=== PATIENT | female | born 1955 | race Caucasian/White ===

== ENCOUNTER 2016-10-09 09:16 | Inpatient (IN) | payer MEDICARE, MEDICAID ==
[~2016-10-09] VITALS: Ht 162.6 cm; Wt 61.2 kg
[2016-10-09] MEDS ORDERED: SODIUM CHLORIDE 0.9% 1,000 ML IV ONE (09:51)
[2016-10-09] MEDS ORDERED: ONDANSETRON HCL 4MG/2ML VIAL IV STA (09:51)
[2016-10-09] MEDS ORDERED: FAMOTIDINE 20MG/2ML VIAL IV STA (09:51)
[2016-10-09 10:10] LABS: BASOPHILS % 0.6 % (0.0-2.0); EOSINOPHILS % 1.3 % (0.0-5.0); HEMATOCRIT. 26.2 % (36.0-48.0); HEMOGLOBIN. 8.9 g/dL (12.0-16.0); LYMPHOCYTES % 15.2 % (20.0-50.0); MEAN CORPUSCULAR HEMOGLOBIN 28.8 pg (28.0-32.0); MEAN CORPUSCULAR VOLUME 84.8 fL (81.0-99.0); MONOCYTES % 5.5 % (2.0-8.0); NEUTROPHILS % 77.4 % (40.0-76.0); PLATELET 218 x1000/uL (130-400); RED BLOOD CELL COUNT 3.09 mill/uL (4.2-5.4); RED CELL DISTRIBUTION WIDTH 14.5 % (11.6-14.6)
[2016-10-09 10:16] LABS: CHLORIDE 107 mEq/L (98-107); INDEX HEMOLYSI 1 (1-3); INDEX ICTERIC 1 (1-4); INDEX LIPEMIC 1 (1-3)
[2016-10-09 10:18] LABS: PROTHROMBIN TIME 10.2 sec
[2016-10-09 10:26] LABS: ALANINE AMINOTRANSFERASE 27 IU/L (13-61); ALBUMIN 3.6 g/dL (3.4-5.0); ANION GAP 13; CALCIUM 8.7 mg/dL (8.5-10.1); CARBON DIOXIDE 23 mEq/L (21-32); LIPASE 179 IU/L (73-393); UREA NITROGEN BLOOD 42 mg/dL (7-21); eGFR 19 mL/min (>60)
[2016-10-09 10:27] LABS: NT PRO B-TYPE NATRIURETIC PEP 1220 pg/mL (5-125); TROPONIN I < 0.02 ng/mL (0.00-0.04)
[2016-10-09 11:20] LABS: CLARITY URINE CLEAR (CLEAR); COLOR URINE YELLOW (YELLOW); GLUCOSE URINE NEGATIVE (NEGATIVE); KETONES URINE NEGATIVE (NEGATIVE); LEUKOCYTE ESTERASE URINE 1+ (NEGATIVE); NITRITE URINE NEGATIVE (NEGATIVE); OCCULT BLOOD URINE TRACE (NEGATIVE); PROTEIN URINE 1+ (NEGATIVE); SPECIFIC GRAVITY URINE 1.006 (1.005-1.030); UROBILINOGEN URINE 0.2 E.U./dL (0.2-1.0)
[2016-10-09 11:35] LABS: BACTERIA URINE TRACE; SQUAMOUS EPITHELIAL CELL URINE 1+ /lpf (RARE/1+)
[2016-10-09 11:47] LABS: RBC URINE 0-2 /hpf (0-2); WBC URINE 0-2 /hpf (0-2)
[2016-10-09] MEDS ORDERED: ACETAMINOPHEN 325MG TABLET PO PRN (13:00)
[2016-10-09] MEDS ORDERED: MAGNESIUM/ALUMINUM HYDROXIDE/SIMETHICONE 30ML UDC PO PRN (13:00)
[2016-10-09] MEDS ORDERED: IPRATROPIUM/ALBUTEROL 0.5-3(2.5)MG/3ML NEB INH PRN (13:00)
[2016-10-09] MEDS ORDERED: ONDANSETRON HCL 4MG/2ML VIAL IV PRN (13:00)
[2016-10-09] MEDS ORDERED: DIPHENHYDRAMINE 50MG/ML VIAL IV PRN (13:00)
[2016-10-09] MEDS ORDERED: GUAIFENESIN 200MG/10ML SUGAR FREE UDC PO PRN (13:00)
[2016-10-09] MEDS ORDERED: NA PHOS,M-B/NA PHOS,DI-BA ENEMA 118ML PR PRN (13:00)
[2016-10-09] MEDS ORDERED: LORAZEPAM 2MG/ML CPJ IV PRN (13:00)
[2016-10-09] MEDS ORDERED: HYDROCODONE/ACETAMINOPHEN 5/325MG TABLET PO PRN (13:00)
[2016-10-09] MEDS ORDERED: DOCUSATE SODIUM 100MG CAPSULE PO PRN (13:00)
[2016-10-09] MEDS ORDERED: CLONIDINE 0.1MG TABLET PO PRN (13:00)
[2016-10-09 14:18] LABS: ANION GAP 12; CALCIUM 8.5 mg/dL (8.5-10.1); CARBON DIOXIDE 23 mEq/L (21-32); CHLORIDE 113 mEq/L (98-107); INDEX HEMOLYSI 1 (1-3); INDEX ICTERIC 1 (1-4); INDEX LIPEMIC 1 (1-3); TROPONIN I < 0.02 ng/mL (0.00-0.04); UREA NITROGEN BLOOD 38 mg/dL (7-21); eGFR 21 mL/min (>60)
[2016-10-09 14:22] LABS: CREATINE KINASE 160 IU/L (26-192); INDEX HEMOLYSI 1 (1-3)
[2016-10-09 16:53] VITALS: BP 132/92
[2016-10-09] MEDS ORDERED: HYDROMORPHONE HCL/PF 2MG/ML CPJ IV PRN (17:30)
[2016-10-09] MEDS: SODIUM CHLORIDE 0.45% 1,000 ML IV SCH (18:26)
[2016-10-09] MEDS: ENOXAPARIN 30MG/0.3ML SYR SUBCUT SCH (18:28)
[2016-10-09] MEDS ORDERED: DEXTROSE 50% WATER 50ML SYRINGE IV PRN (19:00)
[2016-10-09 20:00] VITALS: BP 130/79
[2016-10-09] MEDS: BLOOD SUGAR DIAGNOSTIC STRIP TEST SCH (21:02)
[2016-10-09] MEDS: INSULIN LISPRO 100 UNITS/ML SUBCUT SCH (21:07)
[2016-10-10] VITALS: BP 112/75
[2016-10-10 03:52] VITALS: BP 128/71
[2016-10-10] MEDS: BLOOD SUGAR DIAGNOSTIC STRIP TEST SCH ×4 (06:22→20:55)
[2016-10-10] MEDS: INSULIN LISPRO 100 UNITS/ML SUBCUT SCH ×4 (06:27→20:55)
[2016-10-10 06:51] LABS: BASOPHILS % 0.9 % (0.0-2.0); EOSINOPHILS % 1.3 % (0.0-5.0); HEMATOCRIT. 24.4 % (36.0-48.0); HEMOGLOBIN. 8.2 g/dL (12.0-16.0); LYMPHOCYTES % 22.6 % (20.0-50.0); MEAN CORPUSCULAR HEMOGLOBIN 28.6 pg (28.0-32.0); MEAN CORPUSCULAR HGB CONC 33.4 g/dL (31.0-37.0); MEAN CORPUSCULAR VOLUME 85.5 fL (81.0-99.0); MEAN PLATELET VOLUME 7.9 fl (7.4-10.4); MONOCYTES % 8.6 % (2.0-8.0); NEUTROPHILS % 66.6 % (40.0-76.0); PLATELET 195 x1000/uL (130-400); RED BLOOD CELL COUNT 2.85 mill/uL (4.2-5.4); RED CELL DISTRIBUTION WIDTH 14.5 % (11.6-14.6); WHITE BLOOD COUNT 7.4 x1000/uL (4.5-11.0)
[2016-10-10 07:42] VITALS: BP 135/79
[2016-10-10 08:01] LABS: CHLORIDE 112 mEq/L (98-107); INDEX HEMOLYSI 1 (1-3); INDEX ICTERIC 1 (1-4); INDEX LIPEMIC 1 (1-3)
[2016-10-10 08:16] LABS: ALANINE AMINOTRANSFERASE 25 IU/L (13-61); ANION GAP 10; CALCIUM 8.6 mg/dL (8.5-10.1); CARBON DIOXIDE 26 mEq/L (21-32); HDL CHOLESTEROL 68 mg/dL (40-59); LDL CHOLESTEROL 65 mg/dL (5-100); T4 FREE 0.95 ng/dL (0.76-1.46); TRIGLYCERIDE 129 mg/dL (0-150); UREA NITROGEN BLOOD 37 mg/dL (7-21); eGFR 19 mL/min (>60)
[2016-10-10] MEDS: SODIUM CHLORIDE 0.45% 1,000 ML IV SCH (08:17)
[2016-10-10] MEDS: ASPIRIN 81MG EC TABLET PO SCH (08:46)
[2016-10-10 11:55] VITALS: BP 145/91
[2016-10-10 16:00] VITALS: BP 140/95
[2016-10-10 17:09] LABS: CREATINE KINASE 173 IU/L (26-192); CREATINE KINASE MB FRACTION 1.7 ng/mL (0.5-3.6); INDEX HEMOLYSI 1 (1-3); TROPONIN I < 0.02 ng/mL (0.00-0.04)
[2016-10-10] MEDS: ENOXAPARIN 30MG/0.3ML SYR SUBCUT SCH (17:33)
[2016-10-10 20:09] VITALS: BP 127/81
[2016-10-10 23:47] LABS: CREATINE KINASE 151 IU/L (26-192); CREATINE KINASE MB FRACTION 1.6 ng/mL (0.5-3.6); INDEX HEMOLYSI 1 (1-3); TROPONIN I < 0.02 ng/mL (0.00-0.04)
[2016-10-11 00:01] VITALS: BP 138/77
[2016-10-11] MEDS: SODIUM CHLORIDE 0.45% 1,000 ML IV SCH (01:40)
[2016-10-11 04:00] VITALS: BP 144/85
[2016-10-11] MEDS: BLOOD SUGAR DIAGNOSTIC STRIP TEST SCH ×4 (06:25→20:20)
[2016-10-11] MEDS: INSULIN LISPRO 100 UNITS/ML SUBCUT SCH ×4 (06:26→20:21)
[2016-10-11 06:49] LABS: BASOPHILS % 0.7 % (0.0-2.0); EOSINOPHILS % 3.6 % (0.0-5.0); HEMATOCRIT. 26.1 % (36.0-48.0); HEMOGLOBIN. 8.8 g/dL (12.0-16.0); LYMPHOCYTES % 28.2 % (20.0-50.0); MEAN CORPUSCULAR HEMOGLOBIN 28.9 pg (28.0-32.0); MEAN CORPUSCULAR HGB CONC 33.7 g/dL (31.0-37.0); MEAN CORPUSCULAR VOLUME 85.8 fL (81.0-99.0); MEAN PLATELET VOLUME 7.6 fl (7.4-10.4); MONOCYTES % 8.4 % (2.0-8.0); NEUTROPHILS % 59.1 % (40.0-76.0); PLATELET 212 x1000/uL (130-400); RED BLOOD CELL COUNT 3.04 mill/uL (4.2-5.4); RED CELL DISTRIBUTION WIDTH 14.7 % (11.6-14.6); WHITE BLOOD COUNT 6.3 x1000/uL (4.5-11.0)
[2016-10-11 07:22] LABS: INDEX HEMOLYSI 1 (1-3)
[2016-10-11 07:33] LABS: CREATINE KINASE 128 IU/L (26-192); CREATINE KINASE MB FRACTION 1.2 ng/mL (0.5-3.6); TROPONIN I < 0.02 ng/mL (0.00-0.04)
[2016-10-11 07:34] LABS: CALCIUM 8.9 mg/dL (8.5-10.1)
[2016-10-11 08:00] VITALS: BP 124/77
[2016-10-11] MEDS: ASPIRIN 81MG EC TABLET PO SCH (10:14)
[2016-10-11 12:00] VITALS: BP 136/94
[2016-10-11 15:09] LABS: ANTI-NUCLEAR ANTIBODIES DIRECT Negative (Negative)
[2016-10-11] MEDS: ENOXAPARIN 30MG/0.3ML SYR SUBCUT SCH (18:59)
[2016-10-11 20:00] VITALS: BP 120/80
[2016-10-12] VITALS: BP 143/86
[2016-10-12 04:00] VITALS: BP 125/77
[2016-10-12] MEDS: SODIUM CHLORIDE 0.45% 1,000 ML IV SCH (04:10)
[2016-10-12 06:13] LABS: COMPLEMENT C3 97 mg/dL (82-167); COMPLEMENT C4 32 mg/dL (14-44)
[2016-10-12] MEDS: BLOOD SUGAR DIAGNOSTIC STRIP TEST SCH ×2 (06:15→12:10)
[2016-10-12] MEDS: INSULIN LISPRO 100 UNITS/ML SUBCUT SCH ×2 (06:15→12:40)
[2016-10-12 06:55] LABS: BASOPHILS % 0.7 % (0.0-2.0); EOSINOPHILS % 2.9 % (0.0-5.0); HEMATOCRIT. 25.7 % (36.0-48.0); HEMOGLOBIN. 8.5 g/dL (12.0-16.0); LYMPHOCYTES % 24.4 % (20.0-50.0); MEAN CORPUSCULAR HEMOGLOBIN 28.3 pg (28.0-32.0); MEAN CORPUSCULAR VOLUME 85.7 fL (81.0-99.0); MEAN PLATELET VOLUME 7.7 fl (7.4-10.4); MONOCYTES % 8.4 % (2.0-8.0); NEUTROPHILS % 63.6 % (40.0-76.0); PLATELET 202 x1000/uL (130-400); RED CELL DISTRIBUTION WIDTH 14.5 % (11.6-14.6); WHITE BLOOD COUNT 7.7 x1000/uL (4.5-11.0)
[2016-10-12 08:00] VITALS: BP 134/78
[2016-10-12] MEDS: ASPIRIN 81MG EC TABLET PO SCH (10:36)
[2016-10-12 12:00] VITALS: BP 114/79
[2016-10-12 16:00] VITALS: BP 132/86
[2016-10-12 16:19] VITALS: BP 132/86
== END 2016-10-12 17:55 | disposition home or self-care (01) | DRG 682 ==
LOC: ER 10:27 → 8WST 12:47
PROVIDERS: ADMIT Internal Medicine; ATTEND Internal Medicine
DX: I12.9 Hypertensive chronic kidney disease with stage 1 through stage 4 chronic kidney disease, or unspecified chronic kidney disease (principal); N17.0 Acute kidney failure with tubular necrosis; E46 Unspecified protein-calorie malnutrition; N18.4 Chronic kidney disease, stage 4 (severe); E11.51 Type 2 diabetes mellitus with diabetic peripheral angiopathy without gangrene; E86.9 Volume depletion, unspecified; E11.22 Type 2 diabetes mellitus with diabetic chronic kidney disease; E11.649 Type 2 diabetes mellitus with hypoglycemia without coma; R07.89 Other chest pain; D63.8 Anemia in other chronic diseases classified elsewhere; R55 Syncope and collapse; E11.40 Type 2 diabetes mellitus with diabetic neuropathy, unspecified; Z82.49 Family history of ischemic heart disease and other diseases of the circulatory system; Z83.3 Family history of diabetes mellitus; Z89.519 Acquired absence of unspecified leg below knee; Z89.511 Acquired absence of right leg below knee; Z68.23 Body mass index [BMI] 23.0-23.9, adult; G62.9 Polyneuropathy, unspecified
CPT/HCPCS: 36415; 71010; 76770; 80048; 80053; 80061; 81001; 82550; 82553; 82962; 83036; 83690; 83880; 84439; 84443; 84484; 85025; 85379; 85610; 86038; 86160; 93005; 93306; 93970; 96361; 96374; 96375; 99285; J1650; J1815; J2405; J3490; J7030

== ENCOUNTER 2017-01-08 13:12 | Emergency (ER) | payer MEDICARE, MEDICAID ==
[~2017-01-08] VITALS: Ht 160 cm; Wt 61.0 kg
[2017-01-08 18:16] LABS: CLARITY URINE CLEAR (CLEAR); COLOR URINE YELLOW (YELLOW); GLUCOSE URINE NEGATIVE (NEGATIVE); KETONES URINE NEGATIVE (NEGATIVE); LEUKOCYTE ESTERASE URINE 1+ (NEGATIVE); NITRITE URINE NEGATIVE (NEGATIVE); OCCULT BLOOD URINE TRACE (NEGATIVE); PH URINE 6.5 (4.5-8.0); PROTEIN URINE 1+ (NEGATIVE); SPECIFIC GRAVITY URINE 1.005 (1.005-1.030); UROBILINOGEN URINE 0.2 E.U./dL (0.2-1.0)
[2017-01-08 18:30] LABS: BASOPHILS % 0.5 % (0.0-2.0); EOSINOPHILS % 0.5 % (0.0-5.0); HEMATOCRIT. 29.4 % (36.0-48.0); HEMOGLOBIN. 9.8 g/dL (12.0-16.0); LYMPHOCYTES % 12.2 % (20.0-50.0); MEAN CORPUSCULAR HEMOGLOBIN 28.4 pg (28.0-32.0); MEAN PLATELET VOLUME 7.4 fl (7.4-10.4); MONOCYTES % 5.6 % (2.0-8.0); NEUTROPHILS % 81.2 % (40.0-76.0); PLATELET 261 x1000/uL (130-400); RED BLOOD CELL COUNT 3.46 mill/uL (4.2-5.4); RED CELL DISTRIBUTION WIDTH 13.9 % (11.6-14.6)
[2017-01-08 18:33] LABS: CHLORIDE 104 mEq/L (98-107)
[2017-01-08 18:41] LABS: AMYLASE 48 IU/L (25-115); CARBON DIOXIDE 26 mEq/L (21-32)
[2017-01-08 19:52] VITALS: BP 126/71
== END 2017-01-08 19:56 | disposition home or self-care (01) ==
LOC: ER 16:44
DX: F43.20 Adjustment disorder, unspecified (principal); E11.22 Type 2 diabetes mellitus with diabetic chronic kidney disease; I12.9 Hypertensive chronic kidney disease with stage 1 through stage 4 chronic kidney disease, or unspecified chronic kidney disease; N18.9 Chronic kidney disease, unspecified; N39.0 Urinary tract infection, site not specified
CPT/HCPCS: 36415; 80053; 81001; 82150; 85025; 99284

== ENCOUNTER 2021-09-27 14:29 | Inpatient (IN) | payer MEDICARE, MEDICAID ==
[~2021-09-27] VITALS: Ht 167.6 cm; Wt 63.6 kg
[~2021-09-27 14:29] MED LIST: AMLO10TA4 PO; GABA-529 PO; SIMV-43 PO
[2021-09-27 18:25] LABS: BASOPHILS % 0.9 % (0.0-2.0); EOSINOPHILS % 3.6 % (0.0-5.0); LYMPHOCYTES % 16.7 % (20.0-50.0); MEAN CORPUSCULAR HEMOGLOBIN 30.7 pg (28.0-32.0); MEAN CORPUSCULAR VOLUME 93.7 fL (81.0-99.0); MEAN PLATELET VOLUME 7.1 fl (7.4-10.4); MONOCYTES % 9.1 % (2.0-8.0); NEUTROPHILS % 69.7 % (40.0-76.0); PLATELET 158 x1000/uL (130-400); RED BLOOD CELL COUNT 1.82 mill/uL (4.2-5.4); RED CELL DISTRIBUTION WIDTH 15.5 % (11.6-14.6)
[2021-09-27 18:27] LABS: HEMATOCRIT. 17.1 % (36.0-48.0); HEMOGLOBIN. 5.6 g/dL (12.0-16.0)
[2021-09-27 18:33] LABS: CHLORIDE 111 mEq/L (98-107)
[2021-09-27] MEDS ORDERED: ONDANSETRON HCL 4MG/2ML INJ IV PRN (21:45)
[2021-09-27] MEDS ORDERED: DEXTROSE 50% WATER 50ML SYRINGE IV PRN (21:45)
[2021-09-27] MEDS ORDERED: MAGNESIUM/ALUMINUM HYDROXIDE/SIMETHICONE 30ML UDC PO PRN (21:45)
[2021-09-27] MEDS ORDERED: DOCUSATE SODIUM 100MG CAPSULE PO PRN (21:45)
[2021-09-27] MEDS ORDERED: ZOLPIDEM TARTRATE 5MG TABLET PO PRN (21:45)
[2021-09-27] MEDS ORDERED: IPRATROPIUM/ALBUTEROL 0.5-3(2.5)MG/3ML NEB NEB PRN (21:45)
[2021-09-27] MEDS ORDERED: NITROGLYCERIN 0.4MG TABLET SL SL PRN (21:45)
[2021-09-27] MEDS ORDERED: ACETAMINOPHEN 325MG TABLET PO PRN (21:45)
[2021-09-27] MEDS ORDERED: GUAIFENESIN 200MG/10ML SUGAR FREE UDC PO PRN (21:45)
[2021-09-27] MEDS: INSULIN LISPRO 100 UNITS/ML SUBCUT SCH (22:00)
[2021-09-27] MEDS: BLOOD SUGAR DIAGNOSTIC STRIP TEST SCH (22:00)
[2021-09-27 22:24] LABS: T4 FREE 0.77 ng/dL (0.76-1.46)
[2021-09-27 22:31] LABS: FOLIC ACID (FOLATE) SERUM 19.2 ng/mL (>5.38)
[2021-09-27] MEDS: FAMOTIDINE 20MG TABLET PO SCH (23:37)
[2021-09-27] MEDS: CLONIDINE 0.1MG TABLET PO PRN (23:46)
[2021-09-28 05:31] LABS: CHLORIDE 112 mEq/L (98-107)
[2021-09-28 05:32] LABS: BASOPHILS % 1.1 % (0.0-2.0); EOSINOPHILS % 4.7 % (0.0-5.0); HEMATOCRIT. 21.1 % (36.0-48.0); LYMPHOCYTES % 17.1 % (20.0-50.0); MEAN CORPUSCULAR HEMOGLOBIN 30.6 pg (28.0-32.0); MEAN CORPUSCULAR VOLUME 92.4 fL (81.0-99.0); MEAN PLATELET VOLUME 6.9 fl (7.4-10.4); MONOCYTES % 9.3 % (2.0-8.0); NEUTROPHILS % 67.8 % (40.0-76.0); PLATELET 142 x1000/uL (130-400); RED BLOOD CELL COUNT 2.28 mill/uL (4.2-5.4); RED CELL DISTRIBUTION WIDTH 16.3 % (11.6-14.6)
[2021-09-28 05:36] LABS: PHOSPHORUS 6.5 mg/dL (2.5-4.9)
[2021-09-28] MEDS: FUROSEMIDE 40MG/4ML VIAL IVP SCH ×2 (07:10→17:24)
[2021-09-28] MEDS: CLONIDINE 0.1MG TABLET PO PRN ×2 (07:11→11:04)
[2021-09-28] MEDS ORDERED: CITRIC ACID/SODIUM CITRATE SOLN 15ML UDC PO SCH (09:00)
[2021-09-28 12:00] VITALS: BP 179/88
[2021-09-28] MEDS: BLOOD SUGAR DIAGNOSTIC STRIP TEST SCH ×3 (12:10→20:54)
[2021-09-28] MEDS: INSULIN LISPRO 100 UNITS/ML SUBCUT SCH ×3 (12:40→21:03)
[2021-09-28] MEDS: SEVELAMER CARBONATE 800 MG TABLET PO SCH ×2 (13:15→17:34)
[2021-09-28] MEDS: AMLODIPINE 10MG TABLET PO SCH (13:16)
[2021-09-28 13:58] VITALS: BP 181/94
[2021-09-28 16:00] VITALS: BP 161/77
[2021-09-28 16:24] LABS: BG BASE EXCESS -10.8 mmol/L (-2.0-2.0); BG CARBOXYHEMOGLOBIN 0.7 % (0.5-1.5); BG FRACTION INSPIRED OXYGEN 21; BG HCO3 ACT 15.4 mmol/L (22.0-26.0); BG OXYGEN SATURATION 87.9 % (92.0-98.5); BG OXYHEMOGLOBIN 87.3 % (94.0-97.0); BG PCO2 35.4 mmHg (35.0-45.0); BG PH 7.256 (7.350-7.450); BG SAMPLE SITE LEFT RADIAL; BG TOTAL HEMOGLOBIN 10.9 g/dL (12.0-18.0); BG VENT MODE ROOM AIR
[2021-09-28] MEDS: CITRIC ACID/SODIUM CITRATE SOLN 15ML UDC PO SCH ×2 (17:24→20:54)
[2021-09-28 19:38] LABS: HEMATOCRIT 22.7 % (36.0-48.0); HEMOGLOBIN 7.5 g/dL (12.0-16.0)
[2021-09-28 20:00] VITALS: BP 143/73
[2021-09-28] MEDS: FAMOTIDINE 20MG TABLET PO SCH (20:54)
[2021-09-28] MEDS ORDERED: EPOETIN ALFA 10000UNITS/ML VIAL SUBCUT NR (21:00)
[2021-09-28 23:34] VITALS: BP 144/68
[2021-09-29 03:33] VITALS: BP 162/77
[2021-09-29] MEDS: BLOOD SUGAR DIAGNOSTIC STRIP TEST SCH ×4 (06:08→21:58)
[2021-09-29] MEDS: FUROSEMIDE 40MG/4ML VIAL IVP SCH (06:09)
[2021-09-29] MEDS: INSULIN LISPRO 100 UNITS/ML SUBCUT SCH ×4 (06:09→21:00)
[2021-09-29] MEDS: CITRIC ACID/SODIUM CITRATE SOLN 15ML UDC PO SCH ×3 (06:09→22:31)
[2021-09-29 07:36] LABS: BASOPHILS % 0.9 % (0.0-2.0); HEMATOCRIT. 23.7 % (36.0-48.0); LYMPHOCYTES % 14.8 % (20.0-50.0); MEAN CORPUSCULAR HEMOGLOBIN 30.6 pg (28.0-32.0); MEAN PLATELET VOLUME 7.5 fl (7.4-10.4); MONOCYTES % 8.1 % (2.0-8.0); NEUTROPHILS % 71.2 % (40.0-76.0); PLATELET 139 x1000/uL (130-400); RED BLOOD CELL COUNT 2.63 mill/uL (4.2-5.4); RED CELL DISTRIBUTION WIDTH 16.7 % (11.6-14.6)
[2021-09-29 07:50] LABS: PHOSPHORUS 6.6 mg/dL (2.5-4.9)
[2021-09-29 08:00] VITALS: BP 158/87
[2021-09-29] MEDS: SEVELAMER CARBONATE 800 MG TABLET PO SCH ×3 (10:08→16:48)
[2021-09-29] MEDS: AMLODIPINE 10MG TABLET PO SCH (10:08)
[2021-09-29 12:00] VITALS: BP 177/87
[2021-09-29] MEDS: CLONIDINE 0.1MG TABLET PO PRN (14:06)
[2021-09-29 16:00] VITALS: BP 147/75
[2021-09-29] MEDS: ACETAMINOPHEN 325MG TABLET PO PRN ×2 (16:48→23:55)
[2021-09-29 20:00] VITALS: BP 130/61
[2021-09-29] MEDS: FAMOTIDINE 20MG TABLET PO SCH (21:00)
[2021-09-29] MEDS: HYDRALAZINE HCL 25MG TABLET PO SCH (22:30)
[2021-09-30] VITALS: BP 134/58
[2021-09-30 04:00] VITALS: BP 158/85
[2021-09-30] MEDS: BLOOD SUGAR DIAGNOSTIC STRIP TEST SCH (06:39)
[2021-09-30] MEDS: CITRIC ACID/SODIUM CITRATE SOLN 15ML UDC PO SCH (07:07)
[2021-09-30 07:10] LABS: BASOPHILS % 0.9 % (0.0-2.0); EOSINOPHILS % 4.8 % (0.0-5.0); HEMATOCRIT. 22.5 % (36.0-48.0); HEMOGLOBIN. 7.6 g/dL (12.0-16.0); LYMPHOCYTES % 19.5 % (20.0-50.0); MEAN CORPUSCULAR HEMOGLOBIN 30.3 pg (28.0-32.0); MEAN CORPUSCULAR VOLUME 90.1 fL (81.0-99.0); MEAN PLATELET VOLUME 7.7 fl (7.4-10.4); MONOCYTES % 11.2 % (2.0-8.0); NEUTROPHILS % 63.6 % (40.0-76.0); PLATELET 130 x1000/uL (130-400)
[2021-09-30] MEDS: INSULIN LISPRO 100 UNITS/ML SUBCUT SCH (07:40)
[2021-09-30 08:00] VITALS: BP 174/84
[2021-09-30] MEDS: SEVELAMER CARBONATE 800 MG TABLET PO SCH (08:33)
[2021-09-30] MEDS: HYDRALAZINE HCL 25MG TABLET PO SCH (08:33)
[2021-09-30] MEDS: AMLODIPINE 10MG TABLET PO SCH (08:34)
[2021-09-30] MEDS ORDERED: FUROSEMIDE 40MG TABLET PO SCH (09:00)
[2021-09-30 09:27] VITALS: BP 154/84
== END 2021-09-30 10:22 | disposition home health service (06) | DRG 291 ==
LOC: ER 14:29 → 8WST 21:22
PROVIDERS: ADMIT Internal Medicine; ATTEND Internal Medicine
PROC: 30233N1 Transfusion of Nonautologous Red Blood Cells into Peripheral Vein, Percutaneous Approach (ICD-10-PCS; principal; 2021-09-27)
DX: I13.2 Hypertensive heart and chronic kidney disease with heart failure and with stage 5 chronic kidney disease, or end stage renal disease (principal); I50.33 Acute on chronic diastolic (congestive) heart failure; N17.9 Acute kidney failure, unspecified; N18.5 Chronic kidney disease, stage 5; E87.2 Acidosis; D63.8 Anemia in other chronic diseases classified elsewhere; E11.22 Type 2 diabetes mellitus with diabetic chronic kidney disease; E78.00 Pure hypercholesterolemia, unspecified; E78.5 Hyperlipidemia, unspecified; E11.51 Type 2 diabetes mellitus with diabetic peripheral angiopathy without gangrene; I16.0 Hypertensive urgency; Z79.4 Long term (current) use of insulin; Z82.49 Family history of ischemic heart disease and other diseases of the circulatory system; Z83.3 Family history of diabetes mellitus; Z89.511 Acquired absence of right leg below knee; Z91.15 Patient's noncompliance with renal dialysis; Z79.899 Other long term (current) drug therapy; Z91.14 Patient's other noncompliance with medication regimen
CPT/HCPCS: 36415; 36600; 71045; 80048; 80053; 80061; 82375; 82607; 82728; 82746; 82805; 82962; 83036; 83540; 83550; 83735; 83880; 84100; 84439; 84443; 85014; 85018; 85025; 86850; 86900; 86920; 93005; 93970; 97162; 97166; 99291; J0885; J1815; J1940; P9016

== ENCOUNTER 2022-07-05 13:49 | Inpatient (IN) | payer MEDICARE, MEDICAID ==
[~2022-07-05] VITALS: Ht 152.4 cm; Wt 63.2 kg
[2022-07-05] VITALS (9 sets, daily range): BP systolic 177–216; BP diastolic 66–129
[~2022-07-05 13:49] MED LIST changes: -AMLO10TA4 PO; +AMLO5TAB88 PO
[2022-07-05] MEDS ORDERED: LIDOCAINE 5% PATCH TOP SCH (14:45)
[2022-07-05 16:00] LABS: CHLORIDE 100 mEq/L (98-107)
[2022-07-05 16:17] LABS: BASOPHILS % 0.9 % (0.0-2.0); EOSINOPHILS % 0.5 % (0.0-5.0); HEMATOCRIT. 24.4 % (36.0-48.0); LYMPHOCYTES % 7.7 % (20.0-50.0); MEAN CORPUSCULAR HEMOGLOBIN 32.4 pg (28.0-32.0); MEAN CORPUSCULAR VOLUME 98.4 fL (81.0-99.0); MEAN PLATELET VOLUME 7.8 fl (7.4-10.4); MONOCYTES % 6.8 % (2.0-8.0); NEUTROPHILS % 84.1 % (40.0-76.0); PLATELET 273 x1000/uL (130-400); RED BLOOD CELL COUNT 2.48 mill/uL (4.2-5.4); RED CELL DISTRIBUTION WIDTH 18.8 % (11.6-14.6)
[2022-07-05 20:12] LABS: HEPATITIS B SURFACE ANTIGEN NEGATIVE
[2022-07-05] MEDS ORDERED: IPRATROPIUM/ALBUTEROL 0.5-3(2.5)MG/3ML NEB NEB PRN (22:45)
[2022-07-05] MEDS ORDERED: LORAZEPAM 2MG/ML CPJ IV PRN (22:45)
[2022-07-05] MEDS ORDERED: HYDROCODONE/ACETAMINOPHEN 5/325MG TABLET PO PRN (22:45)
[2022-07-05] MEDS ORDERED: ACETAMINOPHEN 325MG TABLET PO PRN (22:45)
[2022-07-05] MEDS ORDERED: ONDANSETRON HCL 4MG/2ML INJ IV PRN (22:45)
[2022-07-05] MEDS ORDERED: DIPHENHYDRAMINE 50MG/ML VIAL IV PRN (22:45)
[2022-07-05] MEDS ORDERED: NALOXONE HCL 0.4MG/ML VIAL IV PRN ×2 (23:00)
[2022-07-05] MEDS ORDERED: ALBUTEROL (0.083%) 2.5MG/3ML NEB HHN PRN (23:00)
[2022-07-05] MEDS ORDERED: IPRATROPIUM BROMIDE (0.02%) 0.5MG/2.5ML NEB HHN PRN (23:00)
[2022-07-05] MEDS: METOPROLOL TARTRATE 25MG TABLET PO SCH (23:14)
[2022-07-05] MEDS: LISINOPRIL 20MG TABLET PO SCH (23:15)
[2022-07-05] MEDS: ENOXAPARIN 30MG/0.3ML SYR SUBCUT SCH (23:15)
[2022-07-05] MEDS: MORPHINE SULFATE 2 MG/ML CPJ (NOT FOR IM USE) IV PRN (23:45)
[2022-07-06] VITALS (9 sets, daily range): BP systolic 134–184; BP diastolic 48–83
[2022-07-06] MEDS: LISINOPRIL 20MG TABLET PO SCH (08:38)
[2022-07-06] MEDS: METOPROLOL TARTRATE 25MG TABLET PO SCH ×2 (08:38→21:54)
[2022-07-06] MEDS: FOLIC ACID 1MG TABLET PO SCH (08:38)
[2022-07-06] MEDS: MORPHINE SULFATE 2 MG/ML CPJ (NOT FOR IM USE) IV PRN ×2 (11:59→23:42)
[2022-07-06] MEDS ORDERED: GUAIFENESIN-DM 200MG-20MG/10ML UDC PO PRN (12:30)
[2022-07-06] MEDS: ENOXAPARIN 30MG/0.3ML SYR SUBCUT SCH (21:54)
[2022-07-07 00:21] VITALS: BP 154/97
[2022-07-07 04:00] VITALS: BP 144/74
[2022-07-07 06:41] LABS: BASOPHILS % 0.6 % (0.0-2.0); EOSINOPHILS % 2.7 % (0.0-5.0); HEMATOCRIT. 23.4 % (36.0-48.0); HEMOGLOBIN. 7.7 g/dL (12.0-16.0); LYMPHOCYTES % 12.2 % (20.0-50.0); MEAN CORPUSCULAR HEMOGLOBIN 32.7 pg (28.0-32.0); MEAN CORPUSCULAR VOLUME 99.2 fL (81.0-99.0); MEAN PLATELET VOLUME 7.8 fl (7.4-10.4); MONOCYTES % 8.9 % (2.0-8.0); NEUTROPHILS % 75.6 % (40.0-76.0); PLATELET 222 x1000/uL (130-400); RED BLOOD CELL COUNT 2.36 mill/uL (4.2-5.4); RED CELL DISTRIBUTION WIDTH 19.5 % (11.6-14.6)
[2022-07-07 08:00] VITALS: BP 158/78
[2022-07-07] MEDS: METOPROLOL TARTRATE 25MG TABLET PO SCH ×2 (08:12→20:10)
[2022-07-07] MEDS: FOLIC ACID 1MG TABLET PO SCH (08:12)
[2022-07-07] MEDS: LISINOPRIL 20MG TABLET PO SCH (08:12)
[2022-07-07 12:00] VITALS: BP 100/64
[2022-07-07 16:00] VITALS: BP 187/81
[2022-07-07 20:02] VITALS: BP 186/95
[2022-07-07] MEDS: ENOXAPARIN 30MG/0.3ML SYR SUBCUT SCH (20:10)
[2022-07-08] VITALS (16 sets, daily range): BP systolic 147–208; BP diastolic 69–109
[2022-07-08] MEDS ORDERED: CLONIDINE 0.1MG TABLET PO PRN (00:30)
[2022-07-08] MEDS ORDERED: DEXTROSE 50% WATER 50ML SYRINGE IV PRN (00:30)
[2022-07-08] MEDS: BLOOD SUGAR DIAGNOSTIC STRIP TEST SCH ×4 (06:20→21:15)
[2022-07-08] MEDS: INSULIN LISPRO 100 UNITS/ML SUBCUT SCH ×4 (06:21→21:00)
[2022-07-08 06:46] LABS: BASOPHILS % 0.6 % (0.0-2.0); EOSINOPHILS % 2.1 % (0.0-5.0); HEMATOCRIT. 22.8 % (36.0-48.0); HEMOGLOBIN. 7.4 g/dL (12.0-16.0); LYMPHOCYTES % 9.8 % (20.0-50.0); MEAN CORPUSCULAR HEMOGLOBIN 32.3 pg (28.0-32.0); MEAN CORPUSCULAR VOLUME 99.4 fL (81.0-99.0); MEAN PLATELET VOLUME 8.1 fl (7.4-10.4); NEUTROPHILS % 78.5 % (40.0-76.0); PLATELET 223 x1000/uL (130-400); RED CELL DISTRIBUTION WIDTH 19.5 % (11.6-14.6)
[2022-07-08] MEDS: FOLIC ACID 1MG TABLET PO SCH (08:27)
[2022-07-08] MEDS: LISINOPRIL 20MG TABLET PO SCH (08:27)
[2022-07-08] MEDS ORDERED: HYDRALAZINE 20MG/ML VIAL IV PRN (08:30)
[2022-07-08] MEDS ORDERED: METOPROLOL TARTRATE 50MG TABLET PO SCH (09:00)
[2022-07-08] MEDS: MORPHINE SULFATE 2 MG/ML CPJ (NOT FOR IM USE) IV PRN (09:54)
[2022-07-08] MEDS: AMLODIPINE 10MG TABLET PO SCH (09:54)
[2022-07-08] MEDS: CARVEDILOL 6.25 MG TABLET PO SCH ×2 (09:54→21:27)
[2022-07-08] MEDS: HYDRALAZINE HCL 50MG TABLET PO SCH ×2 (14:42→23:14)
[2022-07-08] MEDS ORDERED: VANCOMYCIN 1.25GM PMX (XELLIA) 250 ML IV NR (18:00)
[2022-07-08] MEDS: ENOXAPARIN 30MG/0.3ML SYR SUBCUT SCH (21:00)
[2022-07-09 00:05] VITALS: BP 142/91
[2022-07-09 04:00] VITALS: BP 145/100
[2022-07-09] MEDS: HYDRALAZINE HCL 50MG TABLET PO SCH ×3 (06:51→22:00)
[2022-07-09] MEDS: BLOOD SUGAR DIAGNOSTIC STRIP TEST SCH ×4 (06:51→20:05)
[2022-07-09] MEDS: INSULIN LISPRO 100 UNITS/ML SUBCUT SCH ×4 (07:20→20:05)
[2022-07-09] MEDS: FOLIC ACID 1MG TABLET PO SCH (07:56)
[2022-07-09] MEDS: AMLODIPINE 10MG TABLET PO SCH (07:56)
[2022-07-09] MEDS: LISINOPRIL 20MG TABLET PO SCH (07:56)
[2022-07-09] MEDS: CARVEDILOL 6.25 MG TABLET PO SCH ×2 (07:56→20:09)
[2022-07-09 08:00] VITALS: BP 118/82
[2022-07-09] MEDS: MORPHINE SULFATE 2 MG/ML CPJ (NOT FOR IM USE) IV PRN (08:00)
[2022-07-09 12:53] VITALS: BP 130/67
[2022-07-09 16:04] VITALS: BP 147/68
[2022-07-09] MEDS: CEFTRIAXONE 2 G in DEXTROSE 5% WATER 50 ML IV SCH (16:13)
[2022-07-09 19:59] VITALS: BP 133/68
[2022-07-09] MEDS: ENOXAPARIN 30MG/0.3ML SYR SUBCUT SCH (20:05)
[2022-07-10] VITALS (7 sets, daily range): BP systolic 119–142; BP diastolic 44–77
[2022-07-10] MEDS: MORPHINE SULFATE 2 MG/ML CPJ (NOT FOR IM USE) IV PRN ×2 (02:50→17:34)
[2022-07-10] MEDS: BLOOD SUGAR DIAGNOSTIC STRIP TEST SCH ×4 (06:23→21:55)
[2022-07-10] MEDS: HYDRALAZINE HCL 50MG TABLET PO SCH ×3 (06:23→22:38)
[2022-07-10] MEDS: INSULIN LISPRO 100 UNITS/ML SUBCUT SCH ×4 (07:20→22:38)
[2022-07-10] MEDS: CARVEDILOL 6.25 MG TABLET PO SCH ×2 (08:16→22:38)
[2022-07-10] MEDS: AMLODIPINE 10MG TABLET PO SCH (08:16)
[2022-07-10] MEDS: FOLIC ACID 1MG TABLET PO SCH (08:16)
[2022-07-10] MEDS: CEFTRIAXONE 2 G in DEXTROSE 5% WATER 50 ML IV SCH (17:29)
[2022-07-10] MEDS: LISINOPRIL 20MG TABLET PO SCH (17:30)
[2022-07-10] MEDS: ENOXAPARIN 30MG/0.3ML SYR SUBCUT SCH ×2 (22:39→22:41)
[2022-07-11] VITALS (17 sets, daily range): BP systolic 111–149; BP diastolic 59–87
[2022-07-11] MEDS: BLOOD SUGAR DIAGNOSTIC STRIP TEST SCH ×3 (06:39→16:50)
[2022-07-11] MEDS: HYDRALAZINE HCL 50MG TABLET PO SCH ×2 (06:39→16:38)
[2022-07-11] MEDS: INSULIN LISPRO 100 UNITS/ML SUBCUT SCH ×3 (07:20→17:20)
[2022-07-11] MEDS ORDERED: LIDOCAINE 5% PATCH TOP SCH (09:45)
[2022-07-11] MEDS: AMLODIPINE 10MG TABLET PO SCH (10:52)
[2022-07-11] MEDS: LISINOPRIL 20MG TABLET PO SCH (10:52)
[2022-07-11] MEDS: FOLIC ACID 1MG TABLET PO SCH (10:52)
[2022-07-11] MEDS: CARVEDILOL 6.25 MG TABLET PO SCH (10:52)
[2022-07-11] MEDS ORDERED: HYDR-4005 PO (14:39)
[2022-07-11] MEDS ORDERED: HYDR-4005 MT (14:39)
[2022-07-11] MEDS: CEFTRIAXONE 2 G in DEXTROSE 5% WATER 50 ML IV SCH (16:00)
[2022-07-11] MEDS ORDERED: VANCOMYCIN 500MG PREMIX 100 ML IV NR (18:00)
== END 2022-07-11 17:05 | disposition home health service (06) | DRG 871 ==
LOC: ER 13:49 → 6EST 15:33 → EDBEDREQ 15:35 → EDBEDREQTM 15:35 → ENRESERV 15:54 → 3WST 23:40
PROVIDERS: ADMIT Internal Medicine Nephrology; ATTEND Internal Medicine Nephrology
PROC: 5A1D70Z Performance of Urinary Filtration, Intermittent, Less than 6 Hours Per Day (ICD-10-PCS; principal; 2022-07-05)
PROC: 5A1D70Z Performance of Urinary Filtration, Intermittent, Less than 6 Hours Per Day (ICD-10-PCS; 2022-07-08)
DX: A41.9 Sepsis, unspecified organism (principal); I50.43 Acute on chronic combined systolic (congestive) and diastolic (congestive) heart failure; J96.01 Acute respiratory failure with hypoxia; N18.6 End stage renal disease; I13.2 Hypertensive heart and chronic kidney disease with heart failure and with stage 5 chronic kidney disease, or end stage renal disease; E11.52 Type 2 diabetes mellitus with diabetic peripheral angiopathy with gangrene; E44.0 Moderate protein-calorie malnutrition; M46.26 Osteomyelitis of vertebra, lumbar region; I16.0 Hypertensive urgency; E11.22 Type 2 diabetes mellitus with diabetic chronic kidney disease; G54.6 Phantom limb syndrome with pain; R29.6 Repeated falls; D63.1 Anemia in chronic kidney disease; I27.20 Pulmonary hypertension, unspecified; M46.46 Discitis, unspecified, lumbar region; M48.061 Spinal stenosis, lumbar region without neurogenic claudication; E11.69 Type 2 diabetes mellitus with other specified complication; Z20.822 Contact with and (suspected) exposure to COVID-19; L89.156 Pressure-induced deep tissue damage of sacral region; G89.29 Other chronic pain; F41.9 Anxiety disorder, unspecified; R45.1 Restlessness and agitation; Z99.2 Dependence on renal dialysis; Z91.15 Patient's noncompliance with renal dialysis; Z89.511 Acquired absence of right leg below knee; Z79.899 Other long term (current) drug therapy; Z68.27 Body mass index [BMI] 27.0-27.9, adult; Z83.3 Family history of diabetes mellitus; Z99.3 Dependence on wheelchair
CPT/HCPCS: 36415; 70551; 71045; 72146; 72148; 72170; 80048; 80053; 80202; 82962; 83036; 83880; 84484; 85025; 85651; 86705; 86709; 86803; 87340; 87426; 90935; 93005; 93306; 93922; 93970; 94640; 97162; 97166; 97530; 99285; J0696; J1650; J2270; J3370; J7060

== ENCOUNTER 2022-07-17 12:02 | Inpatient (IN) | payer MEDICARE, MEDICAID ==
[~2022-07-17] VITALS: Ht 165.1 cm; Wt 58.1 kg
[~2022-07-17 12:02] MED LIST changes: +HYDR-4005 MT; +HYDR-4005 PO
[2022-07-17 14:22] LABS: HEMATOCRIT. 29.6 % (36.0-48.0); HEMOGLOBIN. 9.8 g/dL (12.0-16.0); MEAN CORPUSCULAR HEMOGLOBIN 32.4 pg (28.0-32.0); MEAN CORPUSCULAR VOLUME 98.1 fL (81.0-99.0); MEAN PLATELET VOLUME 7.6 fl (7.4-10.4); PLATELET 317 x1000/uL (130-400); RED BLOOD CELL COUNT 3.01 mill/uL (4.2-5.4); RED CELL DISTRIBUTION WIDTH 18.3 % (11.6-14.6)
[2022-07-17 14:33] LABS: CHLORIDE 100 mEq/L (98-107)
[2022-07-17] MEDS ORDERED: ALBUTEROL (0.083%) 2.5MG/3ML NEB HHN NR (14:45)
[2022-07-17] MEDS ORDERED: DEXTROSE 50% WATER 50ML SYRINGE IV NR (14:45)
[2022-07-17] MEDS ORDERED: INSULIN REGULAR (HUMULIN R) 300UNITS/3ML VIAL IV NR (14:45)
[2022-07-17] MEDS ORDERED: SODIUM BICARBONATE 8.4% 1 MEQ/ML 50ML SYR IV NR (14:45)
[2022-07-17] MEDS: SODIUM POLYSTYRENE SULFONATE 15 G/60 ML BOT PO NR ×2 (16:01→16:19)
[2022-07-17 17:53] LABS: PLATELET ESTIMATE NORMAL
[2022-07-17] MEDS ORDERED: ASPIRIN 81MG TABLET PO ONE (18:30)
[2022-07-18] VITALS (20 sets, daily range): BP systolic 145–209; BP diastolic 75–118
[2022-07-18] MEDS ORDERED: NALOXONE HCL 0.4MG/ML VIAL IV PRN (00:15)
[2022-07-18] MEDS: GABAPENTIN 100MG CAPSULE PO SCH ×2 (00:23→11:33)
[2022-07-18] MEDS: AMLODIPINE 5MG TABLET PO SCH ×2 (00:23→11:33)
[2022-07-18] MEDS: HYDROCODONE/ACETAMINOPHEN 7.5/325MG TABLET PO PRN (05:16)
[2022-07-18] MEDS: METOPROLOL TARTRATE 50MG TABLET PO SCH ×2 (11:32→21:42)
[2022-07-18] MEDS ORDERED: VANCOMYCIN 1G PREMIX 200 ML IV NR (15:00)
[2022-07-18 15:59] LABS: HEPATITIS B SURFACE ANTIGEN NEGATIVE
[2022-07-18] MEDS: CLONIDINE 0.1MG TABLET PO SCH ×2 (17:31→21:34)
[2022-07-19] VITALS (18 sets, daily range): BP systolic 124–165; BP diastolic 68–88
[2022-07-19] MEDS: CLONIDINE 0.1MG TABLET PO SCH ×3 (05:52→21:47)
[2022-07-19 06:47] LABS: HEMATOCRIT. 25.4 % (36.0-48.0); HEMOGLOBIN. 8.4 g/dL (12.0-16.0); MEAN CORPUSCULAR HEMOGLOBIN 32.4 pg (28.0-32.0); MEAN CORPUSCULAR VOLUME 97.8 fL (81.0-99.0); MEAN PLATELET VOLUME 7.8 fl (7.4-10.4); PLATELET 263 x1000/uL (130-400); RED CELL DISTRIBUTION WIDTH 17.9 % (11.6-14.6)
[2022-07-19] MEDS: METOPROLOL TARTRATE 50MG TABLET PO SCH ×2 (08:18→21:47)
[2022-07-19] MEDS: GABAPENTIN 100MG CAPSULE PO SCH (08:18)
[2022-07-19] MEDS: AMLODIPINE 5MG TABLET PO SCH (08:19)
[2022-07-19 08:54] LABS: PHOSPHORUS 9.4 mg/dL (2.5-4.9)
[2022-07-19] MEDS: HYDROCODONE/ACETAMINOPHEN 7.5/325MG TABLET PO PRN ×2 (11:22→21:48)
[2022-07-19 14:57] LABS: PLATELET ESTIMATE NORMAL
[2022-07-20] VITALS (12 sets, daily range): BP systolic 123–170; BP diastolic 57–116
[2022-07-20] MEDS: CLONIDINE 0.1MG TABLET PO SCH ×3 (06:09→21:38)
[2022-07-20] MEDS: GABAPENTIN 100MG CAPSULE PO SCH (09:34)
[2022-07-20] MEDS: AMLODIPINE 5MG TABLET PO SCH (09:35)
[2022-07-20] MEDS: METOPROLOL TARTRATE 50MG TABLET PO SCH ×2 (09:39→21:39)
[2022-07-20] MEDS: HYDROCODONE/ACETAMINOPHEN 7.5/325MG TABLET PO PRN (21:38)
[2022-07-21] VITALS: BP 132/69
[2022-07-21 04:00] VITALS: BP 156/68
[2022-07-21] MEDS: CLONIDINE 0.1MG TABLET PO SCH ×3 (05:36→22:00)
[2022-07-21 08:00] VITALS: BP 151/66
[2022-07-21] MEDS: GABAPENTIN 100MG CAPSULE PO SCH (08:49)
[2022-07-21] MEDS: AMLODIPINE 5MG TABLET PO SCH (08:49)
[2022-07-21] MEDS: METOPROLOL TARTRATE 50MG TABLET PO SCH ×2 (08:50→21:59)
[2022-07-21 12:16] VITALS: BP 143/66
[2022-07-21 12:37] LABS: BASOPHILS % 1.2 % (0.0-2.0); EOSINOPHILS % 2.7 % (0.0-5.0); HEMATOCRIT. 24.7 % (36.0-48.0); LYMPHOCYTES % 9.2 % (20.0-50.0); MEAN CORPUSCULAR VOLUME 98.5 fL (81.0-99.0); MEAN PLATELET VOLUME 8.3 fl (7.4-10.4); MONOCYTES % 9.1 % (2.0-8.0); NEUTROPHILS % 77.8 % (40.0-76.0); PLATELET 227 x1000/uL (130-400); RED BLOOD CELL COUNT 2.51 mill/uL (4.2-5.4); RED CELL DISTRIBUTION WIDTH 17.1 % (11.6-14.6)
[2022-07-21 16:00] VITALS: BP 153/66
[2022-07-21 20:00] VITALS: BP 146/62
[2022-07-21] MEDS ORDERED: VANCOMYCIN 750MG PREMIX 150 ML IV NR (21:00)
[2022-07-22] VITALS: BP 140/70
[2022-07-22 04:00] VITALS: BP 168/72
[2022-07-22] MEDS: CLONIDINE 0.1MG TABLET PO SCH ×3 (06:01→20:50)
[2022-07-22] MEDS: HYDROCODONE/ACETAMINOPHEN 7.5/325MG TABLET PO PRN (06:02)
[2022-07-22 08:00] VITALS: BP 113/73
[2022-07-22] MEDS: METOPROLOL TARTRATE 50MG TABLET PO SCH ×2 (09:14→20:49)
[2022-07-22] MEDS: GABAPENTIN 100MG CAPSULE PO SCH (09:15)
[2022-07-22] MEDS: AMLODIPINE 5MG TABLET PO SCH (09:16)
[2022-07-22 12:00] VITALS: BP 138/69
[2022-07-22 16:00] VITALS: BP 122/71
[2022-07-22 20:00] VITALS: BP 147/61
[2022-07-23] VITALS: BP 139/80
[2022-07-23 04:00] VITALS: BP 150/66
[2022-07-23] MEDS: CLONIDINE 0.1MG TABLET PO SCH ×2 (06:38→13:59)
[2022-07-23 08:00] VITALS: BP 144/73
[2022-07-23] MEDS: AMLODIPINE 5MG TABLET PO SCH (09:21)
[2022-07-23] MEDS: METOPROLOL TARTRATE 50MG TABLET PO SCH (09:22)
[2022-07-23] MEDS: GABAPENTIN 100MG CAPSULE PO SCH (09:22)
[2022-07-23 12:00] VITALS: BP 140/69
[2022-07-23] MEDS ORDERED: HYDROCODONE/ACETAMINOPHEN 7.5/325MG TABLET PO PRN (12:45)
[2022-07-23 12:58] VITALS: BP 144/73
[2022-07-23] MEDS ORDERED: NALOXONE HCL 0.4MG/ML VIAL IV PRN (13:00)
== END 2022-07-23 14:25 | DRG 640 ==
LOC: ER 12:02 → MICUSO 17:01 → EDBEDREQ 17:08 → 5EST 07-18 03:10 → 6EST 07-19 19:50
PROVIDERS: ADMIT Internal Medicine Nephrology; ATTEND Internal Medicine Nephrology
PROC: 5A1D70Z Performance of Urinary Filtration, Intermittent, Less than 6 Hours Per Day (ICD-10-PCS; principal; 2022-07-18)
PROC: 5A1D70Z Performance of Urinary Filtration, Intermittent, Less than 6 Hours Per Day (ICD-10-PCS; 2022-07-19)
PROC: 5A1D70Z Performance of Urinary Filtration, Intermittent, Less than 6 Hours Per Day (ICD-10-PCS; 2022-07-20)
DX: E87.5 Hyperkalemia (principal); N18.6 End stage renal disease; I13.2 Hypertensive heart and chronic kidney disease with heart failure and with stage 5 chronic kidney disease, or end stage renal disease; E87.70 Fluid overload, unspecified; I16.0 Hypertensive urgency; E11.22 Type 2 diabetes mellitus with diabetic chronic kidney disease; R62.7 Adult failure to thrive; E11.51 Type 2 diabetes mellitus with diabetic peripheral angiopathy without gangrene; D63.8 Anemia in other chronic diseases classified elsewhere; M46.40 Discitis, unspecified, site unspecified; I50.9 Heart failure, unspecified; Z91.15 Patient's noncompliance with renal dialysis; Z99.2 Dependence on renal dialysis; Z74.01 Bed confinement status; Z89.511 Acquired absence of right leg below knee; Z79.4 Long term (current) use of insulin; Z68.21 Body mass index [BMI] 21.0-21.9, adult
CPT/HCPCS: 36415; 71045; 80048; 80053; 80202; 82962; 83735; 84100; 84484; 85025; 86705; 86709; 86803; 87340; 90935; 93005; 97162; 99291; J1815; J3370; J3490